=== PATIENT | male | born 2000 | race Caucasian/White ===

== ENCOUNTER 2021-11-29 19:32 | Emergency (ER) | payer OTHER ==
[~2021-11-29] VITALS: Ht 189.2 cm; Wt 99.1 kg
[2021-11-29 19:33] VITALS: BP 133/68
== END 2021-11-29 20:40 | disposition home or self-care (01) ==
LOC: M ED 19:32
DX: S83.92XA Sprain of unspecified site of left knee, initial encounter (principal); M25.462 Effusion, left knee; X50.0XXA Overexertion from strenuous movement or load, initial encounter; Y92.9 Unspecified place or not applicable; Y93.23 Activity, snow (alpine) (downhill) skiing, snowboarding, sledding, tobogganing and snow tubing; Y99.9 Unspecified external cause status